=== PATIENT | female | born 1970 | race Caucasian/White ===

== ENCOUNTER → 2024-04-08 12:33 | Outpatient (REF) | payer BC, SELFPAY | LOC: HWWDC 12:33 | PROVIDERS: ATTENDING PHYSICIAN Internal Medicine; REFERRING PHYSICIAN Obstetrics & Gynecology | DX: Z12.31 Encounter for screening mammogram for malignant neoplasm of breast (principal) | CPT/HCPCS: 77063; 77067 ==

== ENCOUNTER 2024-10-24 06:26 | Day surgery (SDC) | payer BC, SELFPAY | END 2024-10-24 11:35 | disposition home or self-care (01) | LOC: GI 06:26 | PROVIDERS: ATTENDING PHYSICIAN Internal Medicine Gastroenterology; FAMILY PHYSICIAN Internal Medicine | DX: Z12.11 Encounter for screening for malignant neoplasm of colon (principal); D12.4 Benign neoplasm of descending colon; K57.30 Diverticulosis of large intestine without perforation or abscess without bleeding; K64.8 Other hemorrhoids; K31.A21 Gastric intestinal metaplasia with low grade dysplasia; D13.30 Benign neoplasm of unspecified part of small intestine; K31.89 Other diseases of stomach and duodenum; R12 Heartburn | CPT/HCPCS: 45380; 43239; 88305; 88342 ==

== ENCOUNTER → 2025-05-22 14:20 | Outpatient (REF) | payer BC, SELFPAY | LOC: HWRAD 14:20 | PROVIDERS: ATTENDING PHYSICIAN Advanced Practice Midwife; FAMILY PHYSICIAN Internal Medicine | DX: N95.0 Postmenopausal bleeding (principal) | CPT/HCPCS: 76830; 76856 ==